=== PATIENT | male | born 1955 | race Caucasian/White ===

== ENCOUNTER 2016-11-25 19:06 | Emergency (ER) | payer MEDICARE, OTHER ==
[~2016-11-25] VITALS: Ht 172.7 cm; Wt 79.4 kg
[2016-11-25] MEDS ORDERED: LORazepam Inj 2mg/ml 1ml ONE (19:26)
[2016-11-25 20:37] LABS: BASOPHILS % (AUTO) 0.8 % (0.0-2.0); EOSINOPHILS % (AUTO) 0.2 % (0.0-3.0); MEAN CORPUSCULAR HEMOGLOBIN 26.1 PG (27.0-31.0); MEAN CORPUSCULAR HGB CONC 31.6 G/DL (32.0-36.0); MEAN CORPUSCULAR VOLUME 83 FL (80-99); MEAN PLATELET VOLUME 8.5 FL (6.5-10.1); MONOCYTES % (AUTO) 4.9 % (1.0-10.0); NEUTROPHILS % (AUTO) 83.1 % (45.0-75.0); PLATELET COUNT 184 K/UL (150-450); RED BLOOD COUNT 4.79 M/UL (4.70-6.10); RED CELL DISTRIBUTION WIDTH 15.4 % (11.6-14.8); WHITE BLOOD COUNT 6.5 K/UL (4.8-10.8)
[2016-11-25 21:06] LABS: ACETAMINOPHEN < 10 ug/mL (10-30); ALANINE AMINOTRANSFERASE 13 U/L (3-41); ALCOHOL < 10 mg/dL; ANION GAP 18 (5-15); ASPARTATE AMINO TRANSFERASE 18 U/L (5-40); CALCIUM 9.4 mg/dL (8.6-10.2); CARBON DIOXIDE 26 mEQ/L (20-30); CHLORIDE 96 mEQ/L (98-107); CREATININE 0.8 mg/dL (0.7-1.2); GLOMERULAR FILTRATION RATE > 60 mL/min (>60); HEMOLYSIS 3; POTASSIUM 4.1 mEQ/L (3.4-4.9); SODIUM 140 mEQ/L (135-145); TOTAL PROTEIN 7.3 g/dL (6.6-8.7)
[2016-11-25] MEDS ORDERED: LORazepam 1mg tab ORAL ONE (21:45)
[2016-11-25 22:58] LABS: APPEARANCE,URINE CLEAR; KETONES,URINE 2+ (NEGATIVE); LEUKOCYTE ESTERASE ,URINE 1+ (NEGATIVE); NITRITE,URINE NEGATIVE (NEGATIVE); PH,URINE 7 (4.5-8.0); PROTEIN,URINE NEGATIVE (NEGATIVE); UROBILINOGEN,URINE NORMAL MG/DL (0.0-1.0)
--- NOTE | 2016-11-25 23:01 | Emergency Room Report ---
History of Present Illness General Chief Complaint: Behavioral Complaint Source: EMS Present Illness HPI 61 YO Male presents to the ED brought by ambulance for tremors . EMS reports confusion and paranoia, pt. denies these symptoms. He reports history of parkinsonism and takes levodopa in addition to Lyrica. 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 Patient denies trauma or fall. Patient denies SI or HI. Patient states he was not trying to harm himself. Patient denies psychiatric history. he states that he was recently hospitalized and has not received his medication for his parkinsonism therefore he is having exacerbation of his symptoms. Denies oral lesions or bleeding from the mouth. denies pain to the extremities or abrasions. pt. denies illicit drug use, denies ETOH use. Denies CP, Palpitations, LOC, AMS, dizziness, Changes in Vision, Sensation, paresthesias, or a sudden severe headache. Allergies: Coded Allergies: ASPIRIN (Verified Allergy, Unknown, HIVES, 10/27/10) PENICILLINS (Verified Allergy, Unknown, 05/15/10) Patient History Past Medical History: see triage record, seizures, other - Parkinsons Past Surgical History: none Pertinent Family History: none Reviewed Nursing Documentation: PMH: Agreed, PSxH: Agreed Nursing Documentation-PMH Hx Cardiac Problems: No - PARKINSONS History Of Psychiatric Problem: Yes Review of Systems All Other Systems: negative except mentioned in HPI Physical Exam Vital Signs Date Time Temp Pulse Resp B/P (MAP) Pulse Ox O2 Delivery O2 Flow Rate FiO2 11/25/16 19:00 99.0 100 18 116/110 99 Room Air Sp02 EP Interpretation: reviewed, normal General Appearance: alert, GCS 15, non-toxic, mild distress - moderate tremors making communication difficult Head: normocephalic, atraumatic Eyes: bilateral eye normal inspection, bilateral eye PERRL ENT: hearing grossly normal, normal pharynx, no angioedema, normal voice Neck: full range of motion, supple/symm/no masses Respiratory: chest non-tender, lungs clear, normal breath sounds, speaking full sentences Cardiovascular #1: regular rate, rhythm, no edema Gastrointestinal: normal bowel sounds, non tender, soft, no guarding, no rebound Rectal: deferred Genitourinary: normal inspection Musculoskeletal: back normal, normal range of motion, non-tender Neurologic: alert, oriented x3, responsive, motor strength/tone normal, sensory intact, speech normal - difficulty with speech due to tremors, but comprehensible, other - staggered , shuffled gait, with stooped posture, and moderate tremors. Psychiatric: judgement/insight normal, memory normal, mood/affect normal Skin: normal color, no rash, warm/dry, well hydrated Medical Decision Making PA Attestation Dr. York is my supervising Physician whom patient management has been discussed with. Diagnostic Impression: Primary Impression: History of Parkinson's disease Additional Impression: Behavioral change ER Course 61 YO Male presents to the ED brought by ambulance for tremors . EMS reports confusion and paranoia, pt. denies these symptoms. He reports history of parkinsonism and takes levodopa in addition to Lyrica. 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 Patient denies trauma or fall. Patient denies SI or HI. Patient states he was not trying to harm himself. Patient denies psychiatric history. he states that he was recently hospitalized and has not received his medication for his parkinsonism therefore he is having exacerbation of his symptoms. Denies oral lesions or bleeding from the mouth. denies pain to the extremities or abrasions. pt. denies illicit drug use, denies ETOH use. Denies CP, Palpitations, LOC, AMS, dizziness, Changes in Vision, Sensation, paresthesias, or a sudden severe headache. Pt is tremulous with moderate generalized shaking, able to answer questions and is alert, some difficulty with speech due to tremors and uncontrollable body movements/jerks. not consistent with active sz. Ddx considered but are not limited to OD, SI/HI, psychosis, UTI, intoxication Vital signs: initially had elevated diastolic BP which normalized remaining VS are WNL, pt. is afebrile H&PE are most consistent with exacerbation of Parkinson's due to non-compliance with medication, hx of confusion will do psych work up and closely monitor behavior and mental status. ORDERS: -CBC, CMP: Unremarkable -UA: negative for infection see results attached. -UDS: positive for barbiturates and opiates -Salicylates and Acetaminophen - no acute intoxication. ED INTERVENTIONS: - 1mg Ativan PO - Sinemet PO - Re-evaluation pt. had good response to interventions, and appears to be more functional with decreased tremors. pt. is ambulatory with his cane, continues to be A & O x 4. NAD and cooperative. There is no current necessitation to place pt. on a hold, he does not exhibit danger to himself or others, pt. has alternative more likely diagnosis due to medical condition. I do not suspect an emergent condition at this time given pt. unremarkable work up, and stable current presentation. I believe this pt. is stable for very close outpatient follow up. encouraged pt. to follow up with his PMD/ Neurologist. Pt. mentioned that previous hospital did not electronically send his rx's and he has no transport to the pharmacy and this played a significant role as to why he visited the ED this evening. I verified his correct pharmacy information and electronically sent his rx's as well as provided him with a paper copy. DISPOSITION: I do not feel this pt. poses a threat to himself or others at this time. pt. required refill and administration of his medication for parkinsons. pt. improved moderately after administration. I believe this pt. is stable for very close outpatient follow up. pt. is A & O x 4 and able to make decisions. denies SI , HI, or paranoia. Transport home is facilitated via BLS ambulance. Labs Test 11/25/16 20:08 11/25/16 22:30 White Blood Count 6.5 K/UL (4.8-10.8) Red Blood Count 4.79 M/UL (4.70-6.10) Hemoglobin 12.5 G/DL (14.2-18.0) Hematocrit 39.6 % (42.0-52.0) Mean Corpuscular Volume 83 FL (80-99) Mean Corpuscular Hemoglobin 26.1 PG (27.0-31.0) Mean Corpuscular Hemoglobin Concent 31.6 G/DL (32.0-36.0) Red Cell Distribution Width 15.4 % (11.6-14.8) Platelet Count 184 K/UL (150-450) Mean Platelet Volume 8.5 FL (6.5-10.1) Neutrophils (%) (Auto) 83.1 % (45.0-75.0) Lymphocytes (%) (Auto) 11.0 % (20.0-45.0) Monocytes (%) (Auto) 4.9 % (1.0-10.0) Eosinophils (%) (Auto) 0.2 % (0.0-3.0) Basophils (%) (Auto) 0.8 % (0.0-2.0) Sodium Level 140 mEQ/L (135-145) Potassium Level 4.1 mEQ/L (3.4-4.9) Chloride Level 96 mEQ/L (98-107) Carbon Dioxide Level 26 mEQ/L (20-30) Anion Gap 18 (5-15) Blood Urea Nitrogen 15 mg/dL (7-23) Creatinine 0.8 mg/dL (0.7-1.2) Estimat Glomerular Filtration Rate > 60 mL/min (>60) Glucose Level 127 mg/dL (74-106) Calcium Level 9.4 mg/dL (8.6-10.2) Total Bilirubin 0.3 mg/dL (0.0-1.2) Aspartate Amino Transf (AST/SGOT) 18 U/L (5-40) Alanine Aminotransferase (ALT/SGPT) 13 U/L (3-41) Alkaline Phosphatase 129 U/L (40-129) Total Protein 7.3 g/dL (6.6-8.7) Albumin 4.9 g/dL (3.5-5.2) Globulin 2.4 g/dL Albumin/Globulin Ratio 2.0 (1.0-2.7) Salicylates Level < 1 mg/dL (10-30) Acetaminophen Level < 10 ug/mL (10-30) Serum Alcohol < 10 mg/dL Urine Color Yellow Urine Appearance Clear Urine pH 7 (4.5-8.0) Urine Specific [place] 1.010 (1.005-1.035) Urine Protein Negative (NEGATIVE) Urine Glucose (UA) Negative (NEGATIVE) Urine Ketones 2+ (NEGATIVE) Urine Occult Blood Negative (NEGATIVE) Urine Nitrite Negative (NEGATIVE) Urine Bilirubin Negative (NEGATIVE) Urine Urobilinogen Normal MG/DL (0.0-1.0) Urine Leukocyte Esterase 1+ (NEGATIVE) Urine RBC 0-2 /HPF (0 - 0) Urine WBC 0-2 /HPF (0 - 0) Urine Squamous Epithelial Cells None /LPF (NONE/OCC) Urine Bacteria Few /HPF (NONE) Urine Opiates Screen Positive (NEGATIVE) Urine Barbiturates Screen Positive (NEGATIVE) Phencyclidine (PCP) Screen Negative (NEGATIVE) Urine Amphetamines Screen Negative (NEGATIVE) Urine Benzodiazepines Screen Negative (NEGATIVE) Urine Cocaine Screen Negative (NEGATIVE) Urine Marijuana (THC) Screen Negative (NEGATIVE) Last Vital Signs Date Time Temp Pulse Resp B/P (MAP) Pulse Ox O2 Delivery O2 Flow Rate FiO2 11/25/16 19:00 99.0 100 18 116/110 99 Room Air Disposition: HOME, SELF-CARE Condition: Stable Scripts Pregabalin (LYRICA) 200 Mg Capsule 200 MG ORAL TWICE A DAY for 5 Days, #10 CAP 0 Refills Prov: Annabel Blum 11/26/16 Carbidopa/Levodopa 25-100 Mg* (SINEMET 25-100 MG TABLET*) 1 Each Tablet 1 TAB ORAL THREE TIMES A DAY for 30 Days, #90 TAB Prov: Annabel Blum 11/26/16 Referrals: NOT CHOSEN IPA/MD,REFERRING (PCP) Patient Instructions: Medicine Refill at the Emergency Department, Parkinson Disease, [id number] Additional Instructions: Take medications as directed. Follow up with a Primary Care Provider in 48 HOURS even if your symptoms have resolved. --Please review list of primary care clinics, if you do not already have a primary care provider Return sooner to ED if new symptoms occur, or current symptoms become worse. - Please note that this Emergency Department Report was dictated using [employer] extract[employer] technology software, occasionally this can lead to erroneous entry secondary to interpretation by the dictation equipment. Annabel Blum Nov 25, 2016 23:01
[2016-11-25 23:09] LABS: BACTERIA,URINE FEW /HPF; RBC,URINE 0-2 /HPF (0 - 0); WBC,URINE 0-2 /HPF (0 - 0)
[2016-11-26] MEDS ORDERED: SINEMET 25-1001 EAC1 ORAL ×2 (00:03→00:14)
[2016-11-26] MEDS ORDERED: LYRICA200 MG ORAL ×3 (00:11→00:20)
[2016-11-26 01:22] VITALS: BP 133/78
[2016-11-26 01:25] VITALS: BP 133/78
== END 2016-11-26 01:25 | disposition home or self-care (01) ==
LOC: EDBD 19:06 → EMR 20:47
DX: G20 Parkinson's disease (principal); F91.9 Conduct disorder, unspecified
CPT/HCPCS: 36415; 80053; 80300; 81003; 85025; 99284; G0480; 80329